=== PATIENT | male | born 1965 | race African-American/Black ===

== ENCOUNTER 2022-02-09 05:31 | Emergency (ER) | payer MEDICAID ==
[~2022-02-09] VITALS: Ht 175.3 cm; Wt 95.5 kg
[2022-02-09 06:52] VITALS: BP 113/74
[2022-02-09] MEDS ORDERED: ACETAMINOPHEN 500 MG TAB PO ONE (07:00)
[2022-02-09] MEDS ORDERED: BENZ100C19 PO (09:58)
[2022-02-09] MEDS ORDERED: ACET-1158 PO (09:58)
[2022-02-09] MEDS ORDERED: LORA-483 GT (09:58)
== END 2022-02-09 09:59 | disposition home or self-care (01) ==
LOC: ER 05:31
DX: J06.9 Acute upper respiratory infection, unspecified (principal); B97.89 Other viral agents as the cause of diseases classified elsewhere; Z20.822 Contact with and (suspected) exposure to COVID-19
CPT/HCPCS: 36415; 71045; 87426; 87804